=== PATIENT | male | born 1965 | race Caucasian/White ===

== ENCOUNTER 2019-01-25 10:27 | Emergency (ER) | payer MEDICARE ==
[2019-01-25] MEDS ORDERED: CYCLOBENZAPRINE HCL 10 MG TAB PO ONE (10:45)
[2019-01-25] MEDS ORDERED: KETOROLAC 60 MG/2 ML VIAL IM ONE (10:45)
[2019-01-25] MEDS ORDERED: CYCLOBENZAPRINE HCL 10 MG TH PO ONE (10:45)
--- NOTE | 2019-01-25 10:45 | ER Report ---
History and Physical Time Seen By MD: 10:39 HPI/ROS CHIEF COMPLAINT: Low back pain HISTORY OF PRESENT ILLNESS: 53-year-old male transiently moving 5 through town and stops to the emergency department today with his low back pain. Patient states she's had this chronically for many many years has multiple x-rays demonstrated degenerative spinal disease he has no history of trauma to the last couple days he's been getting significantly worse pain. Patient says he is ambulatory [place]. Patient denies urinary bladder bowel incontinence and numbness of subtle paresthesias no again history of any recent traumas no indication for imaging at this time. He describes the pain is dull aching occasionally sharp stabbing radiation to the right gluteal area in the right lower extremity consistent with a sciatica presentation REVIEW OF SYSTEMS: Respiratory: No cough, no dyspnea. Cardiovascular: No chest pain, no palpitations. Gastrointestinal: No vomiting, no abdominal pain. Musculoskeletal: Chronic back pain Remainder of the 14 system rev: Yes Reviewed Nurses Notes: Yes Old Medical Records Reviewed: Yes Physical Exam General appearance: Alert no distress. Respiratory: Chest is non tender, lungs are clear to auscultation. Cardiac: Regular rate and rhythm [ ] Low back examination patient with mild tenderness to palpation in the right paraspinous muscle patient had a positive straight leg lift otherwise Norvasc intact otherwise unremarkable exam difficulty with flexion past 120 DIFFERENTIAL DIAGNOSIS: After history and physical exam differential diagnosis was considered for acute on chronic low back pain sciatica Medical Decision Making ED Course/Re-evaluation ED Course ED course 53-year-old male history of chronic back pain multiple visits to physicians his headache cortisone shots in the past patient is transiently moving to [facility] is requesting evaluation we will refer him to neurosurgery and spine specialty [facility] will give him a shot of IM Toradol and Flexeril prescription and have him follow-up with his referral Decision to Disposition Date: Jan 25, 2019 Decision to Disposition Time: 10:41 Depart Departure Impression: Primary Impression: Acute exacerbation of chronic low back pain Condition: Improved Disposition: HOME OR SELF-CARE Referrals: MOISÉS MARINELLI MD 2 Days New Scripts Ketorolac Tromethamine (KETOROLAC TROMETHAMINE) 10 Mg Tab 10 MG PO Q6H PRN for BACK PAIN, #12 TAB Prov: JESSIKA TORRES MD 01/25/19 Patient Instructions: Back Pain (ED) JESSIKA TORRES MD Jan 25, 2019 10:45
[2019-01-25] MEDS ORDERED: KET10 PO (10:46)
[2019-01-25 10:58] VITALS: BP 157/84
[2019-01-25] MEDS ORDERED: MIRT-17 PO (11:00)
== END 2019-01-25 11:24 | disposition home or self-care (01) ==
LOC: ER 10:35
DX: M54.5 Low back pain (principal); G89.29 Other chronic pain
CPT/HCPCS: 96372; 99283; A9270; J1885